=== PATIENT | male | born 1970 | race Caucasian/White ===

== ENCOUNTER 2017-08-11 14:19 | Emergency (ER) | payer OTHER ==
[~2017-08-11] VITALS: Ht 177.8 cm; Wt 89.0 kg
[2017-08-11 14:27] VITALS: TEMP 37; Ht 177.8 cm; Wt 89.0 kg
[2017-08-11] MEDS ORDERED: XYLOCAINE 1%/SOD BICARB 20 ML VIAL INFIL STA (14:40)
[2017-08-11] MEDS ORDERED: CEPHALEXIN MONOHYDRATE 250 MG CAP PO STA (14:40)
--- NOTE | 2017-08-11 15:23 | EMERGENCY ROOM VISIT NOTE ---
ED Visit Note First contact with patient: 14:33 Chief Complaint: "Cut toe left foot". History of Present Illness: This patient is a 46-year-old male who presents to the Emergency Department via private vehicle referred by urgent care for evaluation of their left second toe laceration with questionable tendon involvement. Patient sustained the laceration while carrying a microwave, when the door opened and the glass plate fell onto his shoe, cutting through the mesh portion of the shoe, his sock and the top portion of his left second toe. They report a moderate amount of bleeding initially. They deny any numbness or tingling into the distal extremity. They report no decreased range of motion of the affected digit. . Patient rates his current discomfort as a 1/10. Patient 's Tetanus status is possibly currently up-to-date but he declines immunization. Medications: As noted below Allergies: None PMH: No pertinent SHx: Patient lives locally ROS: All pertinent positive and negative review of systems are appropriately documented in the History of Present Illness. Physical Exam: VITAL SIGNS - Vital signs and nursing notes were reviewed. Stable. GENERAL -46-year-old male appearing his stated age who is in no acute distress. Communicates well with provider and answers questions appropriately. SKIN - There is a 2 cm long laceration noted on the anterior aspect of the left second digit overlying the proximal joint. The edges gape apart with traction. No foreign bodies appreciated. Upon further examination there are deep structures including tendon but no bony or vessel structures appreciated. There is no active bleeding noted. MUSCULOSKELETAL - Laceration as described above. +5/5 strength appreciated of the affected digit. Full range of motion of the affected digit. NEUROLOGIC - Spinothalamic tract was found to be intact with ability to discriminate sharp versus dull sensation. No sensory defects of the dorsal column were appreciated utilizing light touch for evaluation. VASCULAR - Capillary refill was brisk. IMAGING: LEFT SECOND TOE RADIOGRAPHS CLINICAL HISTORY: Left 2nd toe pain. COMPARISON: None FINDINGS: Alignment of left second toe is anatomic. There is no fracture or radiopaque foreign body. Subtle soft tissue defect of the dorsal aspect of the second toe suggests a laceration. IMPRESSION: No acute fracture or radiopaque foreign body within the left second toe. Electronically signed by: Yonatan Decker M.D. 08/11/2017 3:42 PM Dictated Date/Time: 08/11/2017 3:27 PM ED Course: Patient was seen and evaluated by myself. Risks and benefits of performing primary wound closure versus no repair were discussed with the patient who verbalizes understanding. Verbal consent was obtained prior to performing the procedure. Radiograph was obtained with out acute fracture. Examination is concerning for that of a tendon laceration. 2 cc of 1% buffered lidocaine was used to perform local anesthetization of the left second foot digit. The wound was cleansed and prepped in the typical sterile fashion utilizing normal saline and Betadine. The wound was sterilely draped. Once proper anesthetization was established, the wound was further examined and demonstrated tendon involvement but no bone involvement. The wound was copiously irrigated with normal saline and Betadine. The wound was closed using 3 simple, 5-0 nylon sutures with the wound edges being well approximated. Patient tolerated the procedure well. No complications were met. The wound was cleansed and dressed with a Bacitracin dressing. The toe was hari taped to the great toe. Postop shoe was provided. I did consult the orthopedic surgeon television script writer, Dr. Alvarez. We discussed the tendon laceration. It was decided to thoroughly irrigate, initiate Keflex, and have him follow up with Dr. Warner in the office by having the patient call tomorrow morning. He will be given a prescription of Keflex. Patient educated on worrisome symptoms for return visit to the Emergency Department. Patient discharged to home in good condition. In evaluation treatment this patient following differential diagnoses radiographs: Fracture, dislocation, tendon laceration, open fracture, among others. Current/Historical Medications Scheduled Cephalexin Monohydrate (Keflex), 500 MG PO QID Allergies Coded Allergies: No Known Allergies (Unverified , 10/09/16) Vital Signs Date Time Temp Pulse Resp B/P (MAP) Pulse Ox O2 Delivery O2 Flow Rate FiO2 08/11/17 16:25 63 151/94 97 08/11/17 14:27 37.0 61 20 134/79 97 Room Air Medications Administered Medications (Trade) Dose Ordered Sig/Rojelio Route Start Time Stop Time Status Last Admin Dose Admin Lidocaine HCl (Buffered Lidocaine 1% Inj) 20 ml NOW STAT INFIL 08/11/17 14:40 08/11/17 14:42 DC 08/11/17 15:05 20 ML Cephalexin Monohydrate (Keflex Cap) 500 mg NOW STAT PO 08/11/17 14:40 08/11/17 14:42 DC 08/11/17 15:04 500 MG Departure Information Impression Primary Impression: Toe laceration involving tendon Dispostion Home / Self-Care Condition GOOD Prescriptions Cephalexin Monohydrate (Keflex) 500 Mg Cap 500 MG PO QID for 7 Days, #28 CAP Prov: Nakul JohnsonMARYA Packer 08/11/17 Referrals No Doctor, Assigned (PCP) Dm Warner D.OOchoa Patient Instructions My [facility] Additional Instructions Discharge Instructions: You have received 3 sutures on your toe. These sutures are NOT dissolvable and WILL need to be removed by a health care provider in 12 days. You can return to the Emergency Department or contact your Primary Care Provider to have the sutures removed. Please call Dr. Warner, orthopedic surgeon first thing tomorrow to schedule follow-up appointment. Please wear the splint/hari tape for comfort until the sutures are removed. Keflex 500 mg every 6 hours for 7 days to prevent infection. Please pick this up from your pharmacy and take your next dose around 9 PM Proper wound care is essential for adequate wound healing and infection prevention. You can shower and clean the wound with soap and water. Do not scour over the wound, pat dry with a towel. Do not submerse the wound (i.e. bathe or dish wash) until the sutures have been removed. You can use an antibiotic ointment with a dressing over the wound for the next 3-4 days. After this time you may leave the wound dry and open to the air. If crust develops over the wound you can use a Q-tip to apply a 1:1 peroxide:water solution to clean the wound. Look for signs of infection of the wound including: increased pain, swelling, foul discharge, streaking, or increased temperature. If any of these are noticed you should return to the Emergency Department for further assessment and treatment. As with any laceration you may have received nerve damage to the surrounding tissues. This damage may or may not be permanent. You should keep the area covered with sunscreen for the first 6 months to 1 year when at risk for exposure to help minimize scarring. You can also use scar reducing creams or Vitamin E oil to help minimize scarring. For pain control, you can use the following [id number] medicines (if >12 yo): - Regular strength (325mg/tab) Tylenol (acetaminophen) 2 tabs every 4-6 hours as needed. Do not exceed 12 tablets in a 24 hour period. Avoid taking more than 3 grams (3000 mg) of Tylenol per day. This includes any other sources of acetaminophen you may take on a regular basis. - Regular strength (200 mg/tab) Advil (ibuprofen) 1-2 tabs every 4-6 hours as needed. Do not exceed a dose of 3200 mg per day. Return to the emergency department if your symptoms worsen despite treatment course outlined above.
--- NOTE | 2017-08-11 15:44 | DIAGNOSTIC IMAGING REPORT ---
LEFT SECOND TOE RADIOGRAPHS CLINICAL HISTORY: Left 2nd toe pain. COMPARISON: None FINDINGS: Alignment of left second toe is anatomic. There is no fracture or radiopaque foreign body. Subtle soft tissue defect of the dorsal aspect of the second toe suggests a laceration. IMPRESSION: No acute fracture or radiopaque foreign body within the left second toe. Electronically signed by: Yonatan Decker M.D. 08/11/2017 3:42 PM Dictated Date/Time: 08/11/2017 3:27 PM
[2017-08-11] MEDS ORDERED: CEPH500C PO (16:13)
[2017-08-11 16:25] VITALS: BP 151/94; PULSE 63; O2SAT 97
== END 2017-08-11 16:27 | disposition home or self-care (01) ==
LOC: C.EDB 14:20 → C.EDD 16:27
DX: S96.922A Laceration of unspecified muscle and tendon at ankle and foot level, left foot, initial encounter (principal); W22.8XXA Striking against or struck by other objects, initial encounter